=== PATIENT | female | born 1985 | race African-American/Black ===

== ENCOUNTER 2018-08-15 04:44 | Inpatient (IN) | payer MEDICAID ==
[~2018-08-15] VITALS: Ht 165.1 cm; Wt 73.9 kg
[2018-08-15 04:45] VITALS: BP 134/67
[2018-08-15] MEDS ORDERED: NACL 0.9% 1,000 ML IV ONE (05:03)
[2018-08-15] MEDS ORDERED: MORPHINE SULFATE 4 MG/ML SYR IVP ONE ×2 (05:05→08:10)
[2018-08-15] MEDS ORDERED: ONDANSETRON 4 MG/2 ML VIAL IVP ONE (05:05)
--- NOTE | 2018-08-15 05:22 | NUR ---
PT PRESENTS TO ED WITH C/O RLQ PAIN. PT HAS +REBOUND TENDERNESS. BOWEL SOUNDS ACTIVE. ABD IS SOFT. PT REPORTS PAIN UPON PALAPTION. LAST MEAL - 2100 YESTERDAY AND VOMITTED. PT PLACED INTO BED, PENDING MD ROBERTSON. PMH--DENIES RX--DENIES
--- NOTE | 2018-08-15 05:34 | NUR ---
PT TO CT VIA WC
[2018-08-15 05:41] LABS: ALBUMIN 4.4 g/dL (3.4-5.0); CARBON DIOXIDE 26.6 mmol/L (21-32); CREATININE 0.7 mg/dL (0.6-1.3); POTASSIUM 3.6 mmol/L (3.5-5.1); TOTAL BILIRUBIN 0.3 mg/dL (0.0-1.0)
[2018-08-15 06:05] LABS: APPEARANCE,URINE CLOUDY (CLEAR); BILIRUBIN,URINE NEGATIVE (NEGATIVE); BLOOD, URINE NEGATIVE (NEGATIVE); COLOR,URINE YELLOW (YELLOW); LEUKOCYTE ESTERASE ,URINE NEGATIVE (NEGATIVE); NITRITE, URINE NEGATIVE (NEGATIVE); UGLUCOSE NEGATIVE (NEGATIVE)
[2018-08-15 06:06] LABS: BASOPHILS % (AUTO) 0.2 % (0.0-2.0); EOSINOPHILS # (AUTO) 0.1 K/uL (0-0.4); EOSINOPHILS % (AUTO) 1.3 % (0.0-4.0); HEMOGLOBIN 12.4 g/dL (12.0-16.0); LYMPHOCYTES # (AUTO) 1.3 K/uL (2.5-16.5); LYMPHOCYTES % (AUTO) 16.9 % (20.5-51.1); MEAN CORPUSCULAR HEMOGLOBIN 29 pg (27-31); MEAN CORPUSCULAR HGB CONC 33 g/dL (33-37); MEAN CORPUSCULAR VOLUME 87.8 fL (80-94); MONOCYTES # (AUTO) 0.3 K/uL (0.8-1.0); MONOCYTES % (AUTO) 3.8 % (1.7-9.3); NEUTROPHILS # (AUTO) 5.9 K/uL (1.8-7.7); NEUTROPHILS % (AUTO) 77.8 % (42.2-75.2); PLATELET COUNT (AUTO) 181 K/uL (140-450); RED BLOOD CELL COUNT(AUTO) 4.33 MIL/uL (4.20-5.40); RED CELL DISTRIBUTION WIDTH 13.8 % (11.6-13.7); WHITE BLOOD COUNT (AUTO) 7.6 K/uL (4.8-10.8)
[2018-08-15 06:07] LABS: RBC,URINE NONE SEEN /HPF (0-5); WBC,URINE NONE SEEN /HPF (0-5)
[2018-08-15] MEDS ORDERED: KETOROLAC 30 MG/ML VIAL IVP ONE (06:15)
[2018-08-15] MEDS ORDERED: PIPERACILLIN/TAZOBACTAM 3.375 GM in DEXTROSE 5% 50 ML IV ONE (06:40)
[2018-08-15] MEDS ORDERED: metroNIDAZOLE 500 MG/NS PREMIX 100 ML IV ONE (06:40)
[2018-08-15] MEDS ORDERED: PIPERACILLIN/TAZOBACTAM 3.375 GM VIAL IV ONE ×2 (07:02→11:58)
--- NOTE | 2018-08-15 07:09 | NUR ---
RECEIVED REPORT FROM RAYMOND RAJPUT.Patient appears to be resting comfortably in bed. Respirations even and unlabored.WILL CONTINUE TO MONITOR.
--- NOTE | 2018-08-15 07:09 | NUR ---
REPORT TO REGULO HAMEED. TRANSFER OF CARE AT THIS TIME.
[2018-08-15 07:29] LABS: PROTHROMBIN TIME 10.3 secs (10.8-13.4)
--- NOTE | 2018-08-15 08:04 | NUR ---
Patient being evaluated by DR DUBON at bedside.
[2018-08-15] MEDS ORDERED: ACETAMINOPHEN 325 MG TAB PO PRN (08:40)
[2018-08-15] MEDS ORDERED: HYDROcodone/APAP 7.5/325 MG 1 TAB PO PRN (08:40)
[2018-08-15] MEDS ORDERED: MORPHINE SULFATE 2 MG/ML SYR IVP PRN (08:50)
--- NOTE | 2018-08-15 08:52 | NUR ---
PT TAKEN TO MED FLOOR BY REGULO URBINA VIA DOUGIE
[2018-08-15] MEDS: DOCUSATE SODIUM 100 MG GELCAP PO SCH ×2 (09:00→20:49)
--- NOTE | 2018-08-15 09:00 | NUR ---
Patient will be admitted to care of DR PARISH. Admited to MS. Will go to room 111B. Belongings list completed. Report to JAZMINE RAJPUT.
[2018-08-15] MEDS: ONDANSETRON 4 MG/2 ML VIAL IVP PRN ×2 (09:08→17:37)
[2018-08-15] MEDS: DEXT 5% /NACL 0.9% 1,000 ML IV SCH ×2 (09:11→18:50)
--- NOTE | 2018-08-15 09:30 | NUR ---
PT ADMITTED TO THE UNIT FROM ER. PATIENT AWAKE, ALERT AND ORIENTED. PATIENT IS AMBULATORY. NO S/S OF DISTRESS NOTED AT THIS TIME. PT REPORTS OF ABD PAIN. PATIENT WAS MEDICATED IN ER PRIOR TO COMING TO THE UNIT. WILL CONTINUE TO MONITOR. BED LOWERED WITH CALL LIGHT WITHIN REACH.
[2018-08-15 09:32] VITALS: BP 100/52
[2018-08-15 10:12] LABS: CHOL/HDL RATIO 2.4 (1-4.5); FREE T4 (FREE THYROXINE) 0.89 ng/dL (0.76-1.46); MAGNESIUM 2.2 mg/dL (1.8-2.4); THYROID STIMULATING HORMONE 2.69 uIU/mL (0.34-3.74)
--- NOTE | 2018-08-15 11:31 | NUR ---
PATIENT LEFT THE UNIT FOR SURGERY
[2018-08-15] MEDS ORDERED: BUPIVACAINE-MPF 0.25% 30 ML VIAL INJ ONE (11:58)
[2018-08-15] MEDS ORDERED: fentaNYL 0.05 MG/ML VIAL ONE (12:02)
[2018-08-15] MEDS ORDERED: HYDROmorphone PFS 2 MG/ML SYR ONE (12:02)
[2018-08-15] MEDS ORDERED: SUCCINYLCHOLINE CHLORIDE 200 MG/10 ML VIAL IVP ONE (12:13)
[2018-08-15] MEDS ORDERED: NEOSTIGMINE 1:1000 10 MG/10 ML VIAL ONE (12:13)
[2018-08-15] MEDS ORDERED: DEXAMETHASONE 4 MG/ML VIAL ONE (12:13)
[2018-08-15] MEDS ORDERED: PROPOFOL 200 MG/20 ML VIAL IV ONE (12:13)
[2018-08-15] MEDS ORDERED: ROCURONIUM 50 MG/5 ML VIAL IV ONE (12:13)
[2018-08-15] MEDS ORDERED: ONDANSETRON 4 MG/2 ML VIAL ONE (12:13)
[2018-08-15] MEDS ORDERED: GLYCOPYRROLATE 0.2 MG/ML VIAL ONE (12:13)
[2018-08-15] MEDS ORDERED: KETOROLAC 30 MG/ML VIAL ONE (12:13)
[2018-08-15] MEDS ORDERED: DESFLURANE 240 ML BTL INH ONE (12:13)
[2018-08-15] MEDS ORDERED: HYDROmorphone 1 MG/ML AMP IVP PRN (12:45)
[2018-08-15] MEDS ORDERED: ONDANSETRON 4 MG/2 ML VIAL IVP PRN (12:45)
[2018-08-15] MEDS: PIPER/TAZO 3.375GM/D5W PREMIX 50 ML IV SCH ×2 (13:00→20:49)
--- NOTE | 2018-08-15 13:55 | NUR ---
PATIENT BACK FROM SURGERY. PATIENT IS DROWSY BUT AROUSABLE. 3 LAPAROSCOPIC INCISIONS NOTED TO THE ABD. DRESSINGS CLEAN DRY AND INTACT. TEMP 97.0 BP 110/63 HR 52 O2 SAT 98% ON ROOM AIR. WILL CONTINUE TO MONITOR
--- NOTE | 2018-08-15 13:59 | NUR ---
SCHEDULED ZOSYN NOT ADMINISTERED. PATIENT RECEIVED A DOSE IN OR
--- NOTE | 2018-08-15 15:30 | NUR ---
PATIENT TOO DROWSY AND WEAK TO PERFORM I.S. AT THIS TIME. WILL RETURN AND ATTEMPT AGAIN AT A LATER TIME.
[2018-08-15 15:56] VITALS: BP 97/53
--- NOTE | 2018-08-15 17:45 | NUR ---
EXPLAINED USE OF I.S. TO PATIENT. PATIENT ATTEMPTED TO PERFORM RETURN DEMONSTRATION. POOR EFFORT DEMONSTRATED. PATIENT STATED "I AM TOO WEAK RIGHT NOW". UNABLE TO PERFORM I.S. AT THIS TIME.
--- NOTE | 2018-08-15 19:35 | NUR ---
PATIENT REPORT GIVEN AT BEDSIDE. PATIENT ENDORSED IN STABLE CONDITION
--- NOTE | 2018-08-15 19:36 | NUR ---
RECEIVED REPORT FROM DAY SHIFT NURSE ENE-RN AT BEDSIDE. PT RESTING IN BED, AOX4, ON ROOM AIR WITH RIGHT AC #18 RUNNING D5/NS0.9% @ 100ML/HR. S/P LAP APPENDECTOMY WITH 3 INCISIONS COVERED BY BANDAIDS. DISCUSSED PLAN OF CARE AND PT VERBALIZED UNDERSTANDING. NO S/S OF RESPIRATORY DISTRESS OR DISCOMFORT NOTED AT THIS TIME. BED IN LOWEST POSITION, BED BREAKS ON, BOTH SIDE RAILS UP. BEDSIDE TABLE AND CALL LIGHT ARE WITHIN REACH. WILL CONTINUE TO MONITOR.
[2018-08-15 20:00] VITALS: BP 102/58
--- NOTE | 2018-08-15 20:00 | NUR ---
VITAL SIGNS TAKEN AND TOLERATED WELL. NO S/S OF RESPIRATORY DISTRESS OR DISCOMFORT NOTED AT THIS TIME. WILL CONTINUE TO MONITOR.
--- NOTE | 2018-08-15 20:49 | NUR ---
SCHEDULED MEDICATION GIVEN AND TOLERATED WELL. NO S/S OF RESPIRATORY DISTRESS OR DISCOMFORT NOTED AT THIS TIME. WILL CONTINUE TO MONITOR.
--- NOTE | 2018-08-15 22:00 | NUR ---
PT SLEEPING IN BED. NO S/S OF RESPIRATORY DISTRESS OR DISCOMFORT NOTED AT THIS TIME. WILL CONTINUE TO MONITOR.
[2018-08-15] MEDS ORDERED: INFLUENZA VIRUS VACCINE QUAD 0.5 ML SYR IMVAC PRN (22:25)
[2018-08-16] VITALS: BP 106/59
--- NOTE | 2018-08-16 | NUR ---
VITAL SIGNS TAKEN AND TOLERATED WELL. NO S/S OF RESPIRATORY DISTRESS OR DISCOMFORT NOTED AT THIS TIME. WILL CONTINUE TO MONITOR.
[2018-08-16] MEDS: DEXT 5% /NACL 0.9% 1,000 ML IV SCH (00:05)
--- NOTE | 2018-08-16 02:00 | NUR ---
PT CONTINUES TO SLEEP IN BED. NO S/S OF RESPIRATORY DISTRESS OR DISCOMFORT NOTED AT THIS TIME. WILL CONTINUE TO MONITOR.
--- NOTE | 2018-08-16 04:00 | NUR ---
PT CONTINUES TO SLEEP IN BED. NO S/S OF RESPIRATORY DISTRESS OR DISCOMFORT NOTED AT THIS TIME. WILL CONTINUE TO MONITOR.
[2018-08-16] MEDS: PIPER/TAZO 3.375GM/D5W PREMIX 50 ML IV SCH ×2 (04:30→13:22)
--- NOTE | 2018-08-16 04:30 | NUR ---
SCHEDULED MEDICATION ZOSYN GIVEN AND TOLERATED WELL. NO S/S OF RESPIRATORY DISTRESS OR DISCOMFORT NOTED AT THIS TIME. WILL CONTINUE TO MONITOR.
--- NOTE | 2018-08-16 06:00 | NUR ---
PT CONTINUES TO SLEEP IN BED. NO S/S OF RESPIRATORY DISTRESS OR DISCOMFORT NOTED AT THIS TIME. WILL CONTINUE TO MONITOR.
[2018-08-16 06:33] LABS: BASOPHILS % (AUTO) 0.1 % (0.0-2.0); EOSINOPHILS % (AUTO) 0.2 % (0.0-4.0); HEMATOCRIT 30.3 % (36-48); LYMPHOCYTES # (AUTO) 1.1 K/uL (2.5-16.5); LYMPHOCYTES % (AUTO) 22.1 % (20.5-51.1); MEAN CORPUSCULAR HEMOGLOBIN 29 pg (27-31); MEAN CORPUSCULAR HGB CONC 33 g/dL (33-37); MEAN CORPUSCULAR VOLUME 87.5 fL (80-94); MONOCYTES # (AUTO) 0.2 K/uL (0.8-1.0); MONOCYTES % (AUTO) 4.9 % (1.7-9.3); NEUTROPHILS # (AUTO) 3.7 K/uL (1.8-7.7); NEUTROPHILS % (AUTO) 72.7 % (42.2-75.2); PLATELET COUNT (AUTO) 144 K/uL (140-450); RED BLOOD CELL COUNT(AUTO) 3.47 MIL/uL (4.20-5.40); WHITE BLOOD COUNT (AUTO) 5.1 K/uL (4.8-10.8)
[2018-08-16 06:56] LABS: ANION GAP 11.3 (8-16); CARBON DIOXIDE 24.1 mmol/L (21-32); CREATININE 0.7 mg/dL (0.6-1.3); POTASSIUM 3.4 mmol/L (3.5-5.1)
[2018-08-16 06:59] LABS: PHOSPHORUS 3.2 mg/dL (2.5-4.9)
--- NOTE | 2018-08-16 07:24 | NUR ---
ENDORSED PT CARE TO DAY SHIFT NURSE JAIDEN FOR CONTINUITY OF CARE.
--- NOTE | 2018-08-16 07:30 | NUR ---
RECEIVED PT REPORT FROM WASHER MACHINE NURSE. PT IS AWAKE AND ALERT, NO S/S OF DISTRESS OR SOB NOTED. PT IS ON ROOM AIR, SKIN INTACT BESIDES THE SURGICAL INCISIONS FROM APPENDECTOMY. POST-OPERATIVE PAIN REPORTED TO BE TOLERABLE. IV SITE NOTED ON RAC, 18 G, INFUSING D5NS 100 ML/HR. PT IS AMBULATORY. NO BM OR PASSED GAS YET, OF TODAY. CALL LIGHT IS WITHIN REACH. WILL CONT TO MONITOR.
--- NOTE | 2018-08-16 07:59 | NUR ---
PATIENT HAS BEEN SCREENED AND CATEGORIZED LOW NUTRITION RISK. PATIENT WILL BE SEEN WITHIN 7 DAYS OF ADMISSION. 08/19/18 - 08/21/[address]
[2018-08-16 08:00] VITALS: BP 112/60
[2018-08-16] MEDS ORDERED: POTASSIUM CHLORIDE 10 MEQ TABER PO SCH (08:00)
[2018-08-16] MEDS ORDERED: LACTOBACILLUS RHAMNOSUS GG 1 EACH CAP PO SCH (09:00)
[2018-08-16] MEDS: DOCUSATE SODIUM 100 MG GELCAP PO SCH (10:14)
--- NOTE | 2018-08-16 13:50 | NUR ---
PT COMFORTABLE IN BED, NO S/S OF ACUTE DISTRESS. SURGICAL PAIN IS TOLERABLE. CALL LIGHT WITHIN REACH. WILL CONT TO MONITOR.
[2018-08-16] MEDS ORDERED: ACET-9525 PO (14:26)
--- NOTE | 2018-08-16 16:00 | NUR ---
PT DISCHARGED HOME. DISCHARGE INSTRUCTIONS AND RX GIVEN. PT VERBALIZED UNDERSTANDING, AND SIGNED DISCHARGE DOCUMENTS. FLU VACCINE ADMINISTERED PRIOR TO DC. IV SITE DC'D, WRIST BANDS REMOVED. PT LEFT IN STABLE CONDITION WITH ALL HER BELONGINGS, WITH FAMILY MEMBER.
== END 2018-08-16 16:00 | disposition home or self-care (01) | DRG 234 ==
LOC: MED 04:44 → MTU 08:17
PROVIDERS: ADMIT General Practice; ATTEND General Practice
PROC: 3E02340 Introduction of Influenza Vaccine into Muscle, Percutaneous Approach (ICD-10-PCS; 2018-08-15)
PROC: 0DTJ4ZZ Resection of Appendix, Percutaneous Endoscopic Approach (ICD-10-PCS; principal; 2018-08-15 12:15)
DX: K35.80 Unspecified acute appendicitis (principal); E83.51 Hypocalcemia; D64.9 Anemia, unspecified; E66.3 Overweight; Z68.27 Body mass index [BMI] 27.0-27.9, adult; Z71.3 Dietary counseling and surveillance; Z90.710 Acquired absence of both cervix and uterus; Z23 Encounter for immunization; E87.6 Hypokalemia
CPT/HCPCS: 36415; 80048; 80053; 81001; 81025; 82150; 82374; 83036; 83605; 83690; 83735; 83880; 84100; 84439; 84443; 84484; 85025; 85610; 85730; 86886; 86900; 86901; 87040; 87081; 87086; 88304; 90658; 93005; 96361; 96365; 96375; 96376; 99285; J0330; J1100; J1170; J1644; J1885; J2270; J2405; J2543; J2704; J2710; J3010; J3490; J7030; J7042

== ENCOUNTER 2018-09-16 23:38 | Emergency (ER) | payer MEDICAID ==
[~2018-09-16] VITALS: Ht 157.5 cm; Wt 72.6 kg
[~2018-09-16 23:38] MED LIST: ACET-9525 PO
[2018-09-16 23:57] VITALS: BP 113/72
--- NOTE | 2018-09-17 00:06 | NUR ---
PT AMBULATED TO LOBBY WITH VSS.
[2018-09-17] MEDS ORDERED: KETOROLAC 60 MG/2 ML VIAL IM ONE (02:25)
--- NOTE | 2018-09-17 02:42 | NUR ---
PT TO ED WC/O HEADACHE X 2 DAYS. DENIES N/V. +LIGHT SENSATIVITY. PT PLACED INTO BED PENDING MD ROBERTSON.
[2018-09-17 02:50] VITALS: BP 113/72
--- NOTE | 2018-09-17 02:50 | NUR ---
Patient discharged with v/s stable. Written and verbal after care instructions given and explained. Patient alert, oriented and verbalized understanding of instructions. Ambulatory with steady gait. All questions addressed prior to discharge. ID band removed. Patient advised to follow up with PMD. Rx of TAMIFLU, PROMETHAZINE DM, AND MOTRIN given. Patient educated on indication of medication including possible reaction and side effects. Opportunity to ask questions provided and answered.
== END 2018-09-17 02:50 | disposition home or self-care (01) ==
LOC: MED 23:38
DX: J06.9 Acute upper respiratory infection, unspecified (principal); R51 Headache; Z79.899 Other long term (current) drug therapy
CPT/HCPCS: 81002; 81025; 87086; 96372; 99283; J1885

== ENCOUNTER 2019-04-18 13:52 | Emergency (ER) | payer MEDICAID ==
[~2019-04-18] VITALS: Ht 152.4 cm; Wt 77.3 kg
[2019-04-18 14:02] VITALS: BP 100/56
--- NOTE | 2019-04-18 14:29 | NUR ---
PATIENT AMBULATED TO BED 2
[2019-04-18] MEDS ORDERED: ONDANSETRON 4 MG/2 ML VIAL IVP ONE (14:35)
[2019-04-18] MEDS ORDERED: NACL 0.9% 1,000 ML IV ONE ×2 (14:35→15:50)
--- NOTE | 2019-04-18 14:39 | NUR ---
PT CAME INTO THE ED C/O UPSET STOMACH. PT STATES SHES BEEN HAVING "NAUSEA, VOMITTING, DIARRHEA, FEVER, X LAST NIGHT AFTER 1999. NKA. DENIES PAIN. DENIES PMH. BS ACTIVE X4. ABD NONTENDER, ROUND, SOFT. PT IS LAYING IN BED COMFORTABLY.
[2019-04-18 14:56] LABS: APPEARANCE,URINE CLEAR (CLEAR); BILIRUBIN,URINE NEGATIVE (NEGATIVE); BLOOD, URINE NEGATIVE (NEGATIVE); COLOR,URINE ORANGE (YELLOW); LEUKOCYTE ESTERASE ,URINE NEGATIVE (NEGATIVE); NITRITE, URINE NEGATIVE (NEGATIVE); UGLUCOSE NEGATIVE (NEGATIVE)
[2019-04-18 14:56] LABS: BASOPHILS % (AUTO) 0.1 % (0.0-2.0); EOSINOPHILS # (AUTO) 0.1 K/uL (0-0.4); EOSINOPHILS % (AUTO) 3.3 % (0.0-4.0); HEMATOCRIT 32.8 % (36-48); HEMOGLOBIN 10.9 g/dL (12.0-16.0); LYMPHOCYTES % (AUTO) 24.5 % (20.5-51.1); MEAN CORPUSCULAR HEMOGLOBIN 30 pg (27-31); MEAN CORPUSCULAR HGB CONC 33 g/dL (33-37); MEAN CORPUSCULAR VOLUME 90.1 fL (80-94); MONOCYTES # (AUTO) 0.2 K/uL (0.8-1.0); MONOCYTES % (AUTO) 4.3 % (1.7-9.3); NEUTROPHILS # (AUTO) 2.7 K/uL (1.8-7.7); NEUTROPHILS % (AUTO) 67.8 % (42.2-75.2); PLATELET COUNT (AUTO) 186 K/uL (140-450); RED BLOOD CELL COUNT(AUTO) 3.63 MIL/uL (4.20-5.40)
[2019-04-18 15:09] LABS: ANION GAP 15.5 (8-16); CARBON DIOXIDE 20.7 mmol/L (21-32); CREATININE 0.6 mg/dL (0.6-1.3); POTASSIUM 3.2 mmol/L (3.5-5.1)
--- NOTE | 2019-04-18 15:14 | NUR ---
MEDICATED ORDERED. WILL CONT. TO MONITOR
[2019-04-18 15:15] LABS: ALBUMIN 3.2 g/dL (3.4-5.0); TOTAL BILIRUBIN 0.3 mg/dL (0.0-1.0)
[2019-04-18 18:19] VITALS: BP 97/55
--- NOTE | 2019-04-18 18:20 | NUR ---
D/C iv at 1818.
== END 2019-04-18 18:19 | disposition home or self-care (01) ==
LOC: MED 13:52
DX: O99.282 Endocrine, nutritional and metabolic diseases complicating pregnancy, second trimester (principal); O21.8 Other vomiting complicating pregnancy; E86.0 Dehydration; R11.2 Nausea with vomiting, unspecified; R19.7 Diarrhea, unspecified; Z3A.18 18 weeks gestation of pregnancy; Z79.899 Other long term (current) drug therapy
CPT/HCPCS: 36415; 80053; 81003; 85025; 96361; 96374; 99283; J2405; J7030